=== PATIENT | female | born 1940 | race Caucasian/White ===

== ENCOUNTER → 2019-04-07 | Outpatient (CLI) | payer MEDICARE, OTHER ==
[~2019-04-07] MED LIST: CLOR7.5T49 PO; CYCL1DRO EACHEYE; FISH OIL PO; HYDRO EYE PO; LEVO75TA5 PO; PROP10DR2 EACHEYE; RED600TA PO; RISE150T3 PO; TRAM50TA2 PO
[2019-04-07 09:38] LABS: MEAN CORPUSCULAR HEMOGLOBIN 30.2 pg (27.0-34.8); MEAN CORPUSCULAR VOLUME 91.6 fL (80-100); MEAN PLATELET VOLUME 8.4 fL (7.4-10.4); PLATELET COUNT 229 x10^3/uL (130-400); RED BLOOD COUNT 4.96 x10^6/uL (3.82-5.3); RED CELL DISTRIBUTION WIDTH 13.9 % (9.6-15.2)
[2019-04-07 09:47] LABS: ALANINE AMINOTRANSFERASE 19 U/L (12-78); ALBUMIN 3.7 g/dL (3.4-5.0); ANION GAP 6 mmol/L (5-15); CALCIUM 8.7 mg/dL (8.5-10.1); CHLORIDE 112 mmol/L (98-107); CREATININE 0.96 mg/dL (0.55-1.02)
[2019-04-07 09:55] LABS: ALKALINE PHOSPHATASE 89 U/L (45-117); BILIRUBIN,TOTAL 0.8 mg/dL (0.2-1.0); CHOL/HDL RATIO 3.7; CHOLESTEROL, TOTAL 267 mg/dL (140-239); FREE T4 (FREE THYROXINE) 1.25 ng/dL (0.76-1.46); HDL CHOL % 27 % (28-40); HDL CHOLESTEROL (DIRECT) 73 mg/dL (40-60); LDL CHOLESTEROL,CALCULATED 173 mg/dL (54-169); LDL/HDL RATIO 2.4 (0.5-3.0); TOTAL PROTEIN 7.4 g/dL (6.4-8.2); TRIGLYCERIDES 104 mg/dL (50-200); VLDL CHOLESTEROL 21 mg/dL (0-25)
== END | disposition home or self-care (01) ==
LOC: LAB 09:12
PROVIDERS: ATTEND Internal Medicine
DX: E78.5 Hyperlipidemia, unspecified (principal); E03.9 Hypothyroidism, unspecified; D64.9 Anemia, unspecified; E87.8 Other disorders of electrolyte and fluid balance, not elsewhere classified
CPT/HCPCS: 36415; 80053; 80061; 84439; 84443; 85027

== ENCOUNTER → 2019-04-26 | Outpatient (CLI) | payer MEDICARE, OTHER ==
[~2019-04-26] MED LIST changes: +METH1TAB2 PO; +TEMA15CA PO; +[UNRECOGNIZED DRUG - OTHER] EACHEYE
[2019-04-26 14:32] LABS: BASOPHILS # (AUTO) 0.03 x10^3/uL (0-0.1); BASOPHILS % (AUTO) 1 % (0-1); EOSINOPHILS # (AUTO) 0.06 x10^3/uL (0-0.4); EOSINOPHILS % (AUTO) 1 % (1-7); LYMPHOCYTES # (AUTO) 1.86 x10^3/uL (1-3.4); LYMPHOCYTES % (AUTO) 30 % (22-44); MD NO; MEAN CORPUSCULAR HEMOGLOBIN 30.4 pg (27.0-34.8); MEAN CORPUSCULAR HGB CONC 33.1 g/dL (32.4-35.8); MEAN CORPUSCULAR VOLUME 91.8 fL (80-100); MONOCYTES # (AUTO) 0.42 x10^3/uL (0.2-0.8); MONOCYTES % (AUTO) 7 % (2-9); NEUTROPHILS # (AUTO) 3.92 x10^3/uL (1.8-6.8); NEUTROPHILS % (AUTO) 62 % (42-75); PLATELET COUNT 232 x10^3/uL (130-400); RED BLOOD COUNT 4.74 x10^6/uL (3.82-5.3); RED CELL DISTRIBUTION WIDTH 13.9 % (9.6-15.2)
[2019-04-26 14:37] LABS: ANION GAP 7 mmol/L (5-15); CALCIUM 9.3 mg/dL (8.5-10.1); CHLORIDE 111 mmol/L (98-107)
[2019-04-26 14:49] LABS: INTERNATIONAL NORMALIZED RATIO 0.97 (0.93-1.1); PROTHROMBIN TIME 10.3 Seconds (9.6-11.5)
== END | disposition home or self-care (01) ==
LOC: STAR 12:55
PROVIDERS: ATTEND Orthopaedic Surgery
DX: Z01.818 Encounter for other preprocedural examination (principal); M16.11 Unilateral primary osteoarthritis, right hip
CPT/HCPCS: 36415; 80048; 83036; 85025; 85610; 85730; 87081; 93005

== ENCOUNTER 2019-05-03 05:27 | Inpatient (IN) | payer MEDICARE, OTHER ==
[~2019-05-03] VITALS: Ht 167.6 cm; Wt 74.3 kg
[2019-05-03] MEDS ORDERED: LACTATED RINGERS 1,000 ML IV SCH (05:58)
[2019-05-03] MEDS ORDERED: ACETAMINOPHEN 500 MG TABLET PO ONE (06:00)
[2019-05-03] MEDS ORDERED: ROPIvacaine/PF 0.5%, 30 ML ONE (06:03)
[2019-05-03] MEDS ORDERED: KETOROLAC 60 MG/2 ML ONE (06:03)
[2019-05-03] MEDS ORDERED: TRANEXAMIC ACID 100 MG/ML, 10ML ONE ×2 (06:03)
[2019-05-03] MEDS ORDERED: SODIUM CHLORIDE 0.9% 50 ML ONE (06:04)
[2019-05-03] MEDS ORDERED: FENTANYL PF 250 MCG/5ML ONE (06:04)
[2019-05-03] MEDS ORDERED: EPINEPHRINE 1 MG/ML, 1ML ONE (06:04)
[2019-05-03] MEDS ORDERED: PHENYLEPHRINE 10 MG/ML ONE (06:05)
[2019-05-03] MEDS ORDERED: PROPOFOL 10 MG/ML, 20ML ONE (06:09)
[2019-05-03] MEDS ORDERED: ONDANSETRON 2MG/ML, 2ML ONE (06:09)
[2019-05-03] MEDS ORDERED: GLYCOPYRROLATE 0.2MG/1ML, 5ML ONE (06:09)
[2019-05-03] MEDS ORDERED: DEXAMETHASONE 4 MG/ML, 1ML ONE (06:09)
[2019-05-03] MEDS ORDERED: CEFAZOLIN 1,000 MG ONE (06:09)
[2019-05-03] MEDS ORDERED: ROCURONIUM 10MG/ML,5ML ONE (06:09)
[2019-05-03] MEDS ORDERED: NEOSTIGMINE 1 MG/ML, 10ML ONE (06:09)
[2019-05-03] MEDS ORDERED: HYDROmorphone 2 MG/ML, 1ML IVPush PRN (06:30)
[2019-05-03] MEDS ORDERED: MEPERIDINE/PF 25MG/ML,1ML IVPush PRN (06:30)
[2019-05-03] MEDS ORDERED: PROMETHAZINE 25 MG/ML, 1ML IV PRN (06:30)
[2019-05-03] MEDS ORDERED: MORPHINE SULFATE 4 MG/ML, 1ML IVPush PRN (06:30)
[2019-05-03] MEDS ORDERED: OXYcodone 5 MG/5 ML ORAL.SOL UDC PO PRN (06:30)
[2019-05-03] MEDS ORDERED: hydrALAzine 20 MG/ML, 1ML IV PRN (06:30)
[2019-05-03] MEDS ORDERED: HALOPERIDOL 5 MG/ML IV PRN (06:30)
[2019-05-03] MEDS ORDERED: ONDANSETRON 2MG/ML, 2ML IV PRN ×2 (07:00→17:00)
[2019-05-03] MEDS ORDERED: SCOPOLAMINE PATCH, 1.5MG PATCH.TD72 TD ONE (07:00)
[2019-05-03] MEDS ORDERED: HYDROcodone/APAP 5/325 TABLET PO PRN (07:00)
[2019-05-03] MEDS ORDERED: OXYcodone IR 5MG TABLET PO PRN (07:00)
[2019-05-03] MEDS ORDERED: VANCOMYCIN 1,000 MG ONE (07:31)
[2019-05-03] MEDS ORDERED: FENTANYL PF 100 MCG/2ML ONE ×2 (07:38→08:13)
[2019-05-03] MEDS ORDERED: LABETALOL 5MG/ML, 20ML ONE (08:04)
[2019-05-03] MEDS: LABETALOL 5MG/ML, 20ML IV PRN ×2 (08:06→08:59)
[2019-05-03] MEDS: FENTANYL PF 100 MCG/2ML IV PRN ×4 (08:14→08:46)
[2019-05-03] MEDS ORDERED: OXYcodone 5 MG/5 ML ORAL.SOL UDC ONE (08:36)
[2019-05-03 09:20] VITALS: BP 137/82
[2019-05-03] MEDS ORDERED: MAGNESIUM HYDROXIDE 8%, 30ML UDC PO PRN (10:00)
[2019-05-03] MEDS ORDERED: ONDANSETRON ODT 4 MG PO PRN ×2 (10:00→17:00)
[2019-05-03] MEDS ORDERED: SENNA/DOCUSATE TABLET PO PRN (10:00)
[2019-05-03] MEDS ORDERED: DIPHENHYDRAMINE 25 MG CAPSULE PO PRN (10:00)
[2019-05-03] MEDS ORDERED: BISACODYL 10 MG SUPP PR PRN (10:00)
[2019-05-03] MEDS: NS + 20MEQ KCL 1,000 ML IV SCH ×2 (13:02→22:30)
[2019-05-03 13:20] VITALS: BP 154/85
[2019-05-03] MEDS: CEFAZOLIN PMX 2GM/50ML 50 ML IVPB SCH ×2 (14:20→21:56)
[2019-05-03] MEDS: LEVOTHYROXINE 88 MCG TABLET PO SCH (14:22)
[2019-05-03] MEDS: ASPIRIN 81 MG TABLET EC PO SCH (17:44)
[2019-05-03] MEDS: DOCUSATE 100 MG CAPSULE PO SCH ×2 (17:45→20:11)
[2019-05-03 18:39] VITALS: BP 153/79
[2019-05-03] MEDS ORDERED: TEMAZEPAM 15 MG CAPSULE PO SCH (21:00)
[2019-05-03] MEDS ORDERED: ZOLPIDEM 5MG TABLET PO PRN (21:00)
[2019-05-04 00:10] VITALS: BP 155/87
[2019-05-04 04:02] VITALS: BP 145/77
[2019-05-04] MEDS ORDERED: DEXAMETHASONE 4 MG/ML, 1ML IVPush SCH (06:00)
[2019-05-04] MEDS: ASPIRIN 81 MG TABLET EC PO SCH (06:18)
[2019-05-04] MEDS: ACETAMINOPHEN 325 MG TABLET PO PRN ×2 (06:23→11:41)
[2019-05-04] MEDS: LEVOTHYROXINE 88 MCG TABLET PO SCH (06:24)
[2019-05-04 06:38] VITALS: BP 161/82
[2019-05-04] MEDS: DOCUSATE 100 MG CAPSULE PO SCH (08:22)
[2019-05-04] MEDS: NS + 20MEQ KCL 1,000 ML IV SCH (11:03)
[2019-05-04 12:01] VITALS: BP 111/62
== END 2019-05-04 12:55 | disposition home or self-care (01) | DRG 470 ==
LOC: ORIP 05:27 → 4NE 09:15 → DCLOUNGE 05-04 12:38
PROVIDERS: ADMIT Orthopaedic Surgery; ATTEND Orthopaedic Surgery
PROC: 0SR906A Replacement of Right Hip Joint with Oxidized Zirconium on Polyethylene Synthetic Substitute, Uncemented, Open Approach (ICD-10-PCS; principal; 2019-05-03 07:00)
DX: M16.11 Unilateral primary osteoarthritis, right hip (principal); G35 Multiple sclerosis; F15.90 Other stimulant use, unspecified, uncomplicated; E03.9 Hypothyroidism, unspecified; Z90.710 Acquired absence of both cervix and uterus; Z90.49 Acquired absence of other specified parts of digestive tract; Z90.89 Acquired absence of other organs; Z82.49 Family history of ischemic heart disease and other diseases of the circulatory system; Z88.8 Allergy status to other drugs, medicaments and biological substances; Z88.1 Allergy status to other antibiotic agents; Z91.030 Bee allergy status; Z88.6 Allergy status to analgesic agent; Z79.899 Other long term (current) drug therapy
CPT/HCPCS: 36415; 72170; 76000; 85014; 85018; C1713; G0378; J0171; J0690; J1100; J1885; J2405; J2704; J2710; J2795; J3010; J3370; J3480; Q0162; C1776; J2370; J7120